=== PATIENT | male | born 1995 | race Caucasian/White ===

== ENCOUNTER 2016-12-12 14:33 | Emergency (ER) | payer OTHER ==
[~2016-12-12] VITALS: Ht 167.6 cm; Wt 57.1 kg
[~2016-12-12 14:33] MED LIST: IBUPROFEN600 MG PO; METHOCARBAMOL750 MG PO; MOBIC7.5 MG PO; NAPROXEN500 MG PO; ROBAXIN-750750 MG PO
== END 2016-12-12 14:59 | disposition home or self-care (01) ==
LOC: ED 14:33
DX: S09.90XA Unspecified injury of head, initial encounter (principal); F41.9 Anxiety disorder, unspecified; F32.9 Major depressive disorder, single episode, unspecified; F17.200 Nicotine dependence, unspecified, uncomplicated; W22.8XXA Striking against or struck by other objects, initial encounter; Y92.34 Swimming pool (public) as the place of occurrence of the external cause
CPT/HCPCS: 99282

== ENCOUNTER 2017-10-11 12:31 | Emergency (ER) | payer OTHER ==
[~2017-10-11] VITALS: Ht 167.6 cm; Wt 57.2 kg
[2017-10-11] MEDS ORDERED: NORCO 5-325 TA1 EACH PO (12:43)
[2017-10-11] MEDS ORDERED: METHYLPREDNISOLO4 M1 PO (12:44)
== END 2017-10-11 12:50 | disposition home or self-care (01) ==
LOC: ED 12:31
DX: S46.911A Strain of unspecified muscle, fascia and tendon at shoulder and upper arm level, right arm, initial encounter (principal); F17.200 Nicotine dependence, unspecified, uncomplicated; X58.XXXA Exposure to other specified factors, initial encounter; Y92.89 Other specified places as the place of occurrence of the external cause; Y99.0 Civilian activity done for income or pay
CPT/HCPCS: 99283

== ENCOUNTER 2018-06-07 05:47 | Emergency (ER) | payer BC ==
[~2018-06-07] VITALS: Ht 167.6 cm; Wt 57.1 kg
[~2018-06-07 05:47] MED LIST changes: +METHYLPREDNISOLO4 M1 PO; +NORCO 5-325 TA1 EACH PO
== END 2018-06-07 06:22 | disposition home or self-care (01) ==
LOC: ED 05:47
DX: R19.7 Diarrhea, unspecified (principal); F17.200 Nicotine dependence, unspecified, uncomplicated
CPT/HCPCS: 99283

== ENCOUNTER 2020-09-01 13:43 | Emergency (ER) | payer BC ==
[~2020-09-01 13:43] MED LIST changes: +KEFLEX500 MG PO; +ULTRAM50 MG PO
[2020-09-01] MEDS ORDERED: CEPHALEXIN500 M1 PO (16:17)
[2020-09-01] MEDS ORDERED: HYDROCODON-ACE1 EA10 PO (16:17)
== END 2020-09-01 16:39 | disposition home or self-care (01) ==
LOC: ED 13:43
DX: S81.842A Puncture wound with foreign body, left lower leg, initial encounter (principal); W34.00XA Accidental discharge from unspecified firearms or gun, initial encounter; Z20.822 Contact with and (suspected) exposure to COVID-19; F17.200 Nicotine dependence, unspecified, uncomplicated; Z91.048 Other nonmedicinal substance allergy status
CPT/HCPCS: 36415; 36430; 73560; 73590; 73706; 80053; 81001; 82150; 82550; 83605; 83690; 85025; 86850; 86900; 86901; 86920; 86927; 99285-25; C9803; J0690; J2405; J3010; J7030; P9016; Q9967; U0003